=== PATIENT | male | born 1990 | race Caucasian/White ===

== ENCOUNTER 2016-03-31 17:13 | Observation (INO) | payer MEDICARE, OTHER ==
--- NOTE | 2016-03-31 19:05 | PDOC ---
History of Present Illness - General History Source: Patient Exam Limitations: No Limitations <Cristobal Pearson - Last Filed: 03/31/16 20:39> - General History Source: Patient, Family (Grandmother ), Old Records Exam Limitations: No Limitations - History of Present Illness Initial Comments: 03/31/16 19:12 The patient is a 26 year old male, with a significant past medical history of ADHD, who presents to the emergency department sent by Dr. Kim for evaluation and likely admission to rule out Guillain-Miranda syndrome. The patient reports bilateral lower extremity weakness/numbness/tingling over the past 2 days. The patient reports that his symptoms started in his right leg first, then progressed to his left. The patient saw Dr. Kim in office today who sent the patient to the ED for evaluation and admission. The patient additionally reports one questionable bloody stool yesterday but is refusing to have a rectal exam done in the ED. The patient denies fever, chills, headache or dizziness. The patient denies nausea, vomiting, diarrhea or any recent illnesses. The patient denies any trauma. The patient denies any sick contacts or recent travel. 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 The patients grandmother is at the bedside. Allergies: None reported. Past Surgical History: None reported. Social History: Former smoker. Reports social alcohol consumption. Reports marijuana use. <Sapna Monae - Last Filed: 03/31/16 21:00> - General Chief Complaint: Weakness Stated Complaint: PCP SENT/WEAKNESS Time Seen by Provider: 03/31/16 17:18 Past History - Past Medical History Other medical history: DENIES. - Psycho/Social/Smoking Cessation Hx Suicidal Ideation: No Smoking History: Former smoker Have you smoked in the past 12 months: No Number of Cigarettes Smoked Daily: 6 Information on smoking cessation initiated: No 'Breaking Loose' booklet given: 01/08/16 Hx Alcohol Use: Yes (SOCIAL) Drug/Substance Use Hx: No Substance Use Type: Marijuana <Cristobal Pearson - Last Filed: 03/31/16 20:39> <Sapna Monae - Last Filed: 03/31/16 21:00> - Past Medical History Allergies/Adverse Reactions: Allergies Allergy/AdvReac Type Severity Reaction Status Date / Time No Known Allergies Allergy Verified 03/31/16 17:19 Home Medications: Ambulatory Orders NK [No Known Home Medication] 03/31/16 Review of Systems - Review of Systems Able to Perform ROS?: Yes Comments:: 03/31/16 19:13 GENERAL/CONSTITUTIONAL: No fever or chills. No weakness. HEAD, EYES, EARS, NOSE AND THROAT: No change in vision. No ear pain or discharge. No sore throat. CARDIOVASCULAR: No chest pain or shortness of breath. RESPIRATORY: No cough, wheezing, or hemoptysis. GASTROINTESTINAL: No nausea, vomiting, diarrhea or constipation. GENITOURINARY: No dysuria, frequency, or change in urination. MUSCULOSKELETAL: No joint swelling or pain. No neck or back pain. SKIN: No rash. NEUROLOGIC: +Bilateral lower extremity weakness/numbness/tingling. No headache, vertigo, loss of consciousness. ENDOCRINE: No increased thirst. No abnormal weight change. HEMATOLOGIC/LYMPHATIC: No anemia, easy bleeding, or history of blood clots. ALLERGIC/IMMUNOLOGIC: No hives or skin allergy. <Sapna Monae - Last Filed: 03/31/16 21:00> *Physical Exam - Vital Signs Last Vital Signs Temp Pulse Resp BP Pulse Ox 98.5 F 84 19 128/71 98 03/31/16 17:19 03/31/16 17:19 03/31/16 17:19 03/31/16 17:19 03/31/16 17:19 <Cristobal Pearson - Last Filed: 03/31/16 20:39> - Vital Signs Last Vital Signs Temp Pulse Resp BP Pulse Ox 98.5 F 84 19 128/71 98 03/31/16 17:19 03/31/16 17:19 03/31/16 17:19 03/31/16 17:19 03/31/16 17:19 - Physical Exam Comments: 03/31/16 20:59 GENERAL: Awake, alert, and fully oriented, in no acute distress. HEAD: No signs of trauma. EYES: PERRLA, EOMI, sclera anicteric, conjunctiva clear. ENT: Auricles normal inspection, hearing grossly normal, nares patent, oropharynx clear without exudates. Moist mucosa. NECK: Normal ROM, supple, no lymphadenopathy, JVD, or masses. LUNGS: Breath sounds equal, clear to auscultation bilaterally. No wheezes, and no crackles. HEART: Regular rate and rhythm, normal S1 and S2, no murmurs, rubs or gallops. ABDOMEN: Soft, nontender, normoactive bowel sounds. No guarding, no rebound. No masses. EXTREMITIES: Normal range of motion, no edema. No clubbing or cyanosis. No cords , erythema, or tenderness. NEUROLOGICAL: Cranial nerves II through XII intact. 2/5 strength, plantar flexion. 0/5 strength, dorsiflexion. 4+ extension of the left knee, 4+ extension of the right knee. 3/5 strength, knee flexion bilaterally. Reflexes are 1+ of both knees. 5+ hip flexion and extension. Normal speech, gait is deferred. SKIN: Warm, dry, normal turgor, no rashes or lesions noted. <Sapna Monae - Last Filed: 03/31/16 21:00> Heart Score/ECG Review #1 ECG reviewed & interpreted by me at: 19:45 03/31/16 20:08 NSR 63, QTC 431 msec, normal axis, normal intervals, J point elevation in precordial leads, TWI V2, RSR' V2 <Crisotbal Pearson - Last Filed: 03/31/16 20:39> ED Treatment Course - LABORATORY CBC & Chemistry Diagram: 03/31/16 18:58 03/31/16 18:58 <Cristobal eParson - Last Filed: 03/31/16 20:39> - LABORATORY CBC & Chemistry Diagram: 03/31/16 18:58 03/31/16 18:58 <Sapna Monae - Last Filed: 03/31/16 21:00> Medical Decision Making - Medical Decision Making 03/31/16 19:01 A portion of this note was documented by scribe services under my direction. I have reviewed the details of the note, within reason, and agree with the documentation with the following case summary and management plan written by me. Patient treated in the ED. Nursing notes are reviewed and incorporated into the medical decision-making. Vital signs reviewed. Peripheral IV access obtained by the nurse, laboratory studies are drawn and sent, reviewed and interpreted by myself. Vital Signs Temp Pulse Resp BP Pulse Ox 98.5 F 84 19 128/71 98 03/31/16 17:19 03/31/16 17:19 03/31/16 17:19 03/31/16 17:19 03/31/16 17:19 26-year-old male with ADHD presents from neurologist office Dr. Kim for rule out Guillain-Miranda syndrome. 2 days ago, patient noted some tingling and numbness and weakness in his right lower extremity that progressed to his left lower extremity. Denies any urinary or bowel incontinence. Did have 1 questionable bloody's stool moving yesterday but denies fevers, chills, nausea, vomiting, diarrhea. Denies sick contacts or recent travels. He is now having difficulty walking. Patient had visited neurologist office Dr. Kim who sent the patient to the ED for Guillain-Miranda syndrome rule out. Patient refuses rectal exam at this time. We had agreed that the next patient has a bowel movement, we'll send for stool occult and for culture ie campylobacter. We'll touch base with patient's neurologist. We'll admit the patient to the hospital for further evaluation. Within the differential is multiple sclerosis. Will include MRI Brain and Neck. 03/31/16 20:[address] Lira. She accepts the patient to med/surg observation. Case discussed in detail with admitting physician including history, physical exam and ancillary studies. Admitting physician has assumed care for the patient, will follow all pending diagnostics and will complete the evaluation and treatment. <Cristobal Pearson - Last Filed: 03/31/16 20:39> - Medical Decision Making 03/31/16 19:[address] Kim at 18:55. Referred to answering service, awaiting callback. Dr. Canas returned call at 19:08. Case discussed. <Sapna Monae - Last Filed: 03/31/16 21:00> *DC/Admit/Observation/Transfer - Discharge Dispostion Admit: Yes <Cristobal Pearson - Last Filed: 03/31/16 20:39> - Attestations Scribe Attestion: 03/31/16 19:05 Documentation prepared by Sapna Monae, acting as medical dosimetrist for Cristobal Pearson MD. <Sapna Monae - Last Filed: 03/31/16 21:00> Diagnosis at time of Disposition: Weakness
[2016-03-31 19:15] LABS: BASOPHIL 0.4 % (0-2.0); EOSINOPHIL 0.2 % (0-4.5); MCH 26.7 pg (25.7-33.7); MCHC 33.1 g/dl (32.0-35.9); MEAN CELL VOLUME 80.6 fl (80-96); MEAN PLT VOLUME 8.2 fl (7.5-11.1); NEUTROPHILS 62.8 % (42.8-82.8); PLATELET COUNT 279 K/MM3 (134-434); WHITE BLOOD COUNT 9.5 K/mm3 (4.0-10.0)
[2016-03-31 19:38] LABS: ALBUMIN 4.6 g/dl (3.4-5.0); ANION GAP 9 (8-16); CALCIUM 9.3 mg/dL (8.5-10.1); CO2 26 mmol/L (21-32); CREATININE 0.7 mg/dL (0.7-1.3); GLUCOSE,RANDOM 86 mg/dL (74-106); SGOT/AST 208 U/L (15-37); SGPT/ALT 40 U/L (12-78)
[2016-03-31 19:39] LABS: ALK PHOS 83 U/L (45-117); BILIRUBIN,TOTAL 0.7 mg/dL (0.2-1.0); TOT PROT 7.7 g/dl (6.4-8.2)
[2016-03-31 19:53] LABS: INR 1.05 (0.82-1.09); PROTHROMBIN TIME (PATIENT) 11.6 SEC (9.98-11.88)
[2016-03-31 19:56] LABS: ACTIVATED PTT 28.8 SECONDS (26.9-34.4)
[2016-03-31] MEDS ORDERED: KETOROLAC TROMETHAMINE 30 MG/1 ML VIAL IVPUSH ONE (21:02)
--- NOTE | 2016-03-31 21:46 | HP ---
CHIEF COMPLAINT: leg weakness PCP: none-sent by Dr. Kim-neurology HISTORY OF PRESENT ILLNESS: This is a 26 year old male with a past medical history of ADHD on no medications who presented to the ED with a 2 day history of bilateral lower extremity weakness and pain. He states that the weakness began in the right leg and then progressed to the left. He also reports numbness to both of his feet. He states that he has difficulty walking as his legs "give out" and he "loses his balance" frequently. He denies any recent illnesses, stating that he hasn't been sick in "months." He does report an episode of passing blood rectally yesterday. He states that there was no stool, only a small amount of blood, but he had a normal BM today. He denies any headache, blurry vision, difficulty swallowing, chest pain, SOB, abd pain, N/V/D. ER course was notable for: (1) ECG normal (2) labs WNL Recent Travel: pt denies PAST MEDICAL HISTORY: ADHD PAST SURGICAL HISTORY: pt denies Social History: Smoking: pt denies Alcohol: reports occasional use Drugs: Marijuana, denies any further MDMA since last visit in February Family History: mother in childbirth father alive with HLD, HTN, DM, morbid obesity, had a CVA in his late 30s grandmother with DM, HTN, HLD Allergies No Known Allergies Allergy (Verified 03/31/16 17:19) HOME MEDICATIONS: 3 Medication Instructions Recorded NK [No Known Home Medication] 03/31/16 REVIEW OF SYSTEMS CONSTITUTIONAL: Absent: fever, chills, diaphoresis, generalized weakness, malaise, loss of appetite, weight change HEENT: Absent: rhinorrhea, nasal congestion, throat pain, throat swelling, difficulty swallowing, mouth swelling, ear pain, eye pain, visual changes CARDIOVASCULAR: Absent: chest pain, syncope, palpitations, irregular heart rate, lightheadedness , peripheral edema RESPIRATORY: Absent: cough, shortness of breath, dyspnea with exertion, orthopnea, wheezing, stridor, hemoptysis GASTROINTESTINAL: Absent: abdominal pain, abdominal distension, nausea, vomiting, diarrhea, constipation, melena, hematochezia GENITOURINARY: Absent: dysuria, frequency, urgency, hesitancy, hematuria, flank pain, genital pain MUSCULOSKELETAL: Present: bilat leg pain Absent: myalgia, arthralgia, joint swelling, back pain, neck pain SKIN: Absent: rash, itching, pallor HEMATOLOGIC/IMMUNOLOGIC: Absent: easy bleeding, easy bruising, lymphadenopathy, frequent infections ENDOCRINE: Absent: unexplained weight gain, unexplained weight loss, heat intolerance, cold intolerance NEUROLOGIC: bilateral leg weakness and numbness, unsteady gait Absent: headache, dizziness, seizure, mental status changes, bladder or bowel incontinence PSYCHIATRIC: Absent: anxiety, depression, suicidal or homicidal ideation, hallucinations. PHYSICAL EXAMINATION Vital Signs - 24 hr 3 03/31/16 17:19 Temperature 98.5 F Pulse Rate 84 Respiratory 19 Rate Blood Pressure 128/71 O2 Sat by Pulse 98 Oximetry (%) GENERAL: Awake, alert, and fully oriented, in no acute distress. HEAD: Normal with no signs of trauma. EYES: Pupils equal, round and reactive to light, extraocular movements intact, sclera anicteric, conjunctiva clear. No lid lag. EARS, NOSE, THROAT: Ears normal, nares patent, oropharynx clear without exudates. Moist mucous membranes. symmetrical movement of posterior pharynx NECK: Normal range of motion, supple without lymphadenopathy, JVD, or masses. LUNGS: Breath sounds equal, clear to auscultation bilaterally. No wheezes, and no crackles. No accessory muscle use. HEART: Regular rate and rhythm, normal S1 and S2 without murmur, rub or gallop. ABDOMEN: Soft, nontender, not distended, normoactive bowel sounds, no guarding, no rebound, no masses. No hepatomegaly or splenomegaly. refused rectal exam MUSCULOSKELETAL: Normal range of motion at all joints. No bony deformities or tenderness. No CVA tenderness. UPPER EXTREMITIES: 2+ pulses, warm, well-perfused. No cyanosis. No clubbing. Cap refill <2 seconds. No peripheral edema. normal muscle strength, no drift on arm raise LOWER EXTREMITIES: 2+ pulses, warm, well-perfused. No calf tenderness. No peripheral edema. Absent sensation to monofilament test from 2/3 way up lower leg laterally and just above ankles medially including plantar surface of great toes bilaterally. normal DTRs knee and ankle bilaterally. muscle strength: dorsi and plantar flexion 1-2/5 bilaterally. knee extension and flexion 3/5, able to raise thighs off bed in sitting position 5/5 NEUROLOGICAL: Cranial nerves II-XII intact. Normal speech. PSYCHIATRIC: Cooperative. Good eye contact. Appropriate mood and affect. SKIN: Warm, dry, normal turgor, no rashes or lesions noted. Laboratory Results - last 24 hr 3 03/31/16 03/31/16 03/31/16 18:58 18:58 19:20 WBC 9.5 D RBC 5.30 Hgb 14.2 Hct 42.8 MCV 80.6 MCHC 33.1 RDW 13.0 Plt Count 279 MPV 8.2 Neutrophils % 62.8 D Lymphocytes % 24.9 D Monocytes % 11.7 H Eosinophils % 0.2 D Basophils % 0.4 INR 1.05 PTT (Actin FS) 28.8 Sodium 140 Potassium 3.6 Chloride 105 Carbon Dioxide 26 Anion Gap 9 BUN 20 H Creatinine 0.7 Creat Clearance w eGFR > 60 Random Glucose 86 Calcium 9.3 Total Bilirubin 0.7 AST 208 H ALT 40 Alkaline Phosphatase 83 Total Protein 7.7 Albumin 4.6 ECG: sinus rhythm, rate 63, QTC 431, no acute ST/T inversion ASSESSMENT/PLAN: 26yM with PMH ADHD presented to the ED with bilat lower extremity weakness, sent in by neurology to r/o Guillain-barre syndrome. He is being admitted for observation and further testing. Bilateral lower extremity weakness and numbness - neurology consult - MRI head and c spine ordered by ED, Lumbar spine added - neurology to do lumbar puncture hematochezia - stool culture (r/o C. jejuni), O&P and occult blood ordered, pt refused rectal DVT PPX - as pt not fully ambulatory, start heparin 5000u BID FEN - tolerating po - repeat labs including Mag and Phos in AM - regular diet Dispo: pt currently requires inpatient observation of his emergent condition. Visit type - Emergency Visit Emergency Visit: Yes ED Registration Date: 03/31/16 Care time: The patient presented to the Emergency Department on the above date and was hospitalized for further evaluation of their emergent condition. - New Patient This patient is new to me today: Yes Date on this admission: 03/31/16 - Critical Care Critical Care patient: No
[2016-03-31] MEDS: HEPARIN NA (PORCINE) 5,000 UNITS/ML 1ML VIAL SQ SCH (22:11)
[2016-03-31 22:41] VITALS: BMI 19.1
[2016-04-01 07:47] LABS: BASOPHIL 0.6 % (0-2.0); EOSINOPHIL 1.2 % (0-4.5); MCH 27.3 pg (25.7-33.7); MCHC 33.3 g/dl (32.0-35.9); MEAN CELL VOLUME 81.9 fl (80-96); MEAN PLT VOLUME 8.2 fl (7.5-11.1); NEUTROPHILS 36.9 % (42.8-82.8); PLATELET COUNT 225 K/MM3 (134-434); RDW 13.1 % (11.9-15.9); WHITE BLOOD COUNT 5.8 K/mm3 (4.0-10.0)
[2016-04-01 08:06] LABS: CALCIUM 8.9 mg/dL (8.5-10.1); CREATININE 0.8 mg/dL (0.7-1.3); MAGNESIUM 2.6 mg/dL (1.8-2.4); PHOSPHOROUS 4.4 mg/dL (2.5-4.9)
[2016-04-01] MEDS: morphine CARPU-JECT 2 MG/1 ML DISP.SYRIN IVPUSH PRN ×2 (08:52)
[2016-04-01] MEDS: HEPARIN NA (PORCINE) 5,000 UNITS/ML 1ML VIAL SQ SCH (09:09)
[2016-04-01] MEDS ORDERED: LORazepam 1 MG TABLET PO ONE (11:12)
[2016-04-01] MEDS ORDERED: LORAZEPAM CARPU-JECT 2 MG/ML DISP.SYRIN IVPUSH ONE ×2 (11:33→16:30)
--- NOTE | 2016-04-01 14:14 | PN ---
Physical Exam: SUBJECTIVE: Patient seen and examined at the bedside. States it is difficult to walk around the room secondary to lower extremity weakness. States the top of his feet "feel numb". OBJECTIVE: Vital Signs Period Temp Pulse Resp BP Sys/[place] Pulse Ox Last 24 Hr 97.8 F-98.6 F 48-80 16-20 99-133/53-81 100-100 GENERAL: The patient is awake, alert, and fully oriented, in no acute distress. HEAD: Normal with no signs of trauma. EYES: PERRL, extraocular movements intact, sclera anicteric, conjunctiva clear. No ptosis. ENT: Ears normal, nares patent, oropharynx clear without exudates, moist mucous membranes. NECK: Trachea midline, full range of motion, supple. LUNGS: Breath sounds equal, clear to auscultation bilaterally HEART: Regular rate and rhythm ABDOMEN: Soft, nontender, nondistended, normoactive bowel sounds EXTREMITIES: no edema on bilateral LE, NEUROLOGICAL: Normal speech, gait not observed. 2+ pulses, warm, well-perfused. No calf tenderness. No edema. Absent sensation from 2/3 way up lower leg laterally and just above ankles medially including plantar surface of great toes bilaterally. Absent sensation on bilateral upper spectrum of feet, describes as "pins and needles" SKIN: Warm, dry, normal turgor, no rashes or lesions noted Laboratory Results - last 24 hr 04/01/16 04/01/16 06:00 06:00 WBC 5.8 D RBC 5.05 Hgb 13.8 Hct 41.4 MCV 81.9 MCHC 33.3 RDW 13.1 Plt Count 225 MPV 8.2 Neutrophils % 36.9 L D Lymphocytes % 48.8 H D Monocytes % 12.5 H Eosinophils % 1.2 D Basophils % 0.6 Sodium 140 Potassium 3.6 Chloride 104 Carbon Dioxide 28 Anion Gap 8 BUN 20 H Creatinine 0.8 Random Glucose 100 Calcium 8.9 Phosphorus 4.4 Magnesium 2.6 H Active Medications Generic Name Dose Route Start Last Admin Trade Name Freq PRN Reason Stop Dose Admin Lorazepam 1 mg 04/01/16 16:30 Ativan Injection - IVPUSH 04/01/16 16:31 ONCE ONE ASSESSMENT/PLAN: The patient is a 26 year old male with a significant past medical history of ADHD and former smoker. He was sent to the ER by his neurologist, Dr. Kim for further evaluation to rule out Guillain-Miranda syndrome. The patient reports bilateral lower extremity weakness, numbness and tingling for over the past 2 days. He further states that he had similar symptoms 2 weeks ago but it resolved quickly. Patient further reports bloody stools yesterday, The patient additionally reports one questionable bloody stool yesterday but is refusing to have a rectal exam done in the ED. The patient denies fever, chills, headache or dizziness. He denies any recent illnesses or trauma. 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 He reports recreational marijuana use. Neuro: Bilateral lower extremity progressive weakness/numbness Assessment/Plan: Sent in by his neurologist for further workup and to r/o guillain-barre syndrome Pending MRI of brain, cervical and lumbar spine today Potential LP by neuro Will need PT eval GI: Hematochezia - acute Assessment/Plan: pt reports passage of fresh blood through the anus, usually in or without stools Ova and Parasites blood ordered Hmg/hct stable Refused rectal exam in ED CBC in a.m. F.E.N. Fluids: tolerating PO Electrolytes: hypermag levels, monitor Nutrition: regular diet Prophylaxis: GI: none needed at this time DVT: SCDs when in bed, no AC secondary to hematochezia Disposition: Pt currently requires inpatient observation of his emergent condition. Full Code Visit type - Emergency Visit Emergency Visit: Yes ED Registration Date: 03/31/16 Care time: The patient presented to the Emergency Department on the above date and was hospitalized for further evaluation of their emergent condition. - New Patient This patient is new to me today: Yes Date on this admission: 04/01/16 - Critical Care Critical Care patient: No - Discharge Referral Referred to [facility] Med P.C.: No
[2016-04-01] MEDS ORDERED: morphine CARPU-JECT 2 MG/1 ML DISP.SYRIN IVPUSH PRN (14:17)
--- NOTE | 2016-04-01 16:19 | CONSULT ---
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 Seen in my office yesterday after 2 days of weakness and numbness in both legs with decreased balance and falls. He was in his [employer] Sunday and worked 2 jobs. That night he got high and fell asleep in be with legs crossed, style. He awoke AM with numbness and weakness is BOTH legs and claimed numbness was spreading up to his calves. + FH of MS in 2 relatives. Admitted through the ER for MRI scans, lumbar puncture and close observation to R/O Guillaine-Maskell Syndrome and Transverse Myelitis (demyelinating disease). Today, patient denies progression of symptoms overnight. No arm complaints. No dysphagia, dysarthria or bowel or bladder changes. EXAM: - Lhermittes. - SLR. No spinal palp tenderness. NEURO: MS, Speech, CN's II-XII: Normal MOTOR: Isolated weakness of B/L ankle dorsiflexion, toe extension and eversion (all 1/5) with complete preservation of ankle plantarflexon and inversion (5/5) with normal reflexes including AJ's. Toes downgoing. Coord: Normal Sensory: Decreased sharp in the dorsal webspace between I and II. Gait: Bilateral footdrop with steppage. IMP: Bilateral Peroneal Mononeuropathies, probably on a compressive basis. Plan: LP to R/O AIDP (Guillaine-Maskell syndrome). MRI of brain and C spine to r/o MS Physiatry consultation (can be done as out patient). Neuro f/u and EMG/NCS Thank you very much, Mack Kim MD
--- NOTE | 2016-04-01 16:22 | PROC ---
Lumbar Puncture Risks and Benefits Explained: Yes Consent on Chart: Yes Sterile Technique: Yes Skin prep: Betadine Position: Left lateral decubitus Site: L3-L4 Local Anesthesia: 1% Lidocaine with epi Opening Pressure(mmHg): 170 mm CSF CSF Color, Appearance: Clear (The procedure was well-tolerated by the patient.)
[2016-04-01 17:03] LABS: CSF APPEARANCE CLEAR; CSF COLOR COLORLESS; CSF RBC 0 /mm3
[2016-04-01 17:04] LABS: CSF APPEARANCE CLEAR; CSF COLOR COLORLESS; CSF RBC 0 /mm3
[2016-04-01 17:43] LABS: GLUCOSE,CSF 68 mg/dL (50-80)
--- NOTE | 2016-04-01 20:34 | PN ---
Progress Note (short form) - Note Progress Note: NEUROLOGY F/U: CSF protein = 27 mg% CSF Glusose= 68 mg% CSF WBC=0 MRI of Brain (reviewed): Normal MRI of Cervical spine (reviewed): Normal MRI of LS spine (reviewed): Normal IMP: No evidence for Guillaine-[place] Syndrome or Demyelinating disease (MS). Bilateral, compressive, Peroneal Palsies. SUGGEST: OK to D/C in AM NEURO F/U and EMG/NCS next week. Thank you very much, Mack Kim MD
--- NOTE | 2016-04-01 21:05 | EKG ---
Test Reason : Blood Pressure : / mmHG Vent. Rate : 063 BPM Atrial Rate : 063 BPM P-R Int : 106 ms QRS Dur : 090 ms QT Int : 422 ms P-R-T Axes : 038 084 070 degrees QTc Int : 431 ms SINUS RHYTHM WITH SHORT NV EARLY REPOLARIZATION OTHERWISE NORMAL ECG NO PREVIOUS ECGS AVAILABLE Confirmed by CAMILA CRUZ MD ([id number]) on 04/01/2016 9:05:20 PM Referred By: Confirmed By:CAMILA CRUZ MD
[2016-04-02 07:59] LABS: BASOPHIL 0.7 % (0-2.0); EOSINOPHIL 1.5 % (0-4.5); MCH 27.4 pg (25.7-33.7); MCHC 33.4 g/dl (32.0-35.9); MEAN PLT VOLUME 8.4 fl (7.5-11.1); NEUTROPHILS 39.5 % (42.8-82.8); PLATELET COUNT 216 K/MM3 (134-434); RDW 13.2 % (11.9-15.9); WHITE BLOOD COUNT 4.9 K/mm3 (4.0-10.0)
[2016-04-02 08:18] LABS: ALBUMIN 3.7 g/dl (3.4-5.0); ALK PHOS 70 U/L (45-117); ANION GAP 8 (8-16); BILIRUBIN,TOTAL 0.5 mg/dL (0.2-1.0); CALCIUM 8.4 mg/dL (8.5-10.1); CO2 28 mmol/L (21-32); CREATININE 0.7 mg/dL (0.7-1.3); GLUCOSE,RANDOM 93 mg/dL (74-106); SGOT/AST 136 U/L (15-37); SGPT/ALT 35 U/L (12-78); TOT PROT 6.5 g/dl (6.4-8.2)
[2016-04-02] MEDS ORDERED: ACETAMINOPHEN 325 MG TABLET (FP) PO PRN (11:08)
[2016-04-02 14:14] VITALS: BP 136/68; PULSE 60; TEMP 99.1
--- NOTE | 2016-04-02 22:13 | DS ---
Physical Exam: SUBJECTIVE: Patient seen and examined. OBJECTIVE: Vital Signs Period Temp Pulse Resp BP Sys/[place] Pulse Ox Last 24 Hr 97.5 F-99.1 F 51-65 16-18 101-136/56-81 100 PHYSICAL EXAM GENERAL: The patient is awake, alert, and fully oriented, in no acute distress. HEAD: Normal with no signs of trauma. EYES: PERRL, extraocular movements intact, sclera anicteric, conjunctiva clear. ENT: Ears normal, nares patent, oropharynx clear without exudates, moist mucous membranes. NECK: Trachea midline, full range of motion, supple. LUNGS: Breath sounds equal, clear to auscultation bilaterally, no wheezes, no crackles, no accessory muscle use. HEART: Regular rate and rhythm, S1, S2 without murmur, rub or gallop. ABDOMEN: Soft, nontender, nondistended, normoactive bowel sounds, no guarding, no rebound, no hepatosplenomegaly, no masses. EXTREMITIES: 2+ pulses, warm, well-perfused, no edema. NEUROLOGICAL: Cranial nerves II through XII grossly intact. Normal speech, normal gait. PSYCH: Normal mood, normal affect. SKIN: Warm, dry, normal turgor, no rashes or lesions noted. Laboratory Results - last 24 hr 04/02/16 04/02/16 07:00 07:00 WBC 4.9 RBC 4.84 Hgb 13.3 Hct 39.7 MCV 82.0 MCHC 33.4 RDW 13.2 Plt Count 216 MPV 8.4 Neutrophils % 39.5 L Lymphocytes % 46.3 H Monocytes % 12.0 H Eosinophils % 1.5 Basophils % 0.7 Sodium 143 Potassium 3.9 Chloride 107 Carbon Dioxide 28 Anion Gap 8 BUN 20 H Creatinine 0.7 Creat Clearance w eGFR > 60 Random Glucose 93 Calcium 8.4 L Total Bilirubin 0.5 D AST 136 H D ALT 35 Alkaline Phosphatase 70 Total Protein 6.5 Albumin 3.7 HOSPITAL COURSE: Date of Admission:03/31/16 Date of Discharge: 04/02/16 This is a 26 year old male with a past medical history of ADHD on no medications who presented to the ED with a 2 day history of bilateral lower extremity weakness and pain. Dr. 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 Seen in my office yesterday [03/31/16] after 2 days of weakness and numbness in both legs with decreased balance and falls. He was in his [employer] Sunday and worked 2 jobs. That night he got high and fell asleep in be with legs crossed, style. He awoke AM with numbness and weakness is BOTH legs and claimed numbness was spreading up to his calves. + FH of MS in 2 relatives. Admitted through the ER for MRI scans, lumbar puncture and close observation to R/O Guillaine-[place] Syndrome and Transverse Myelitis (demyelinating disease). On neuro exam, Dr. Kim observed: MOTOR: Isolated weakness of B/L ankle dorsiflexion, toe extension and eversion ( all 1/5) with complete preservation of ankle plantarflexon and inversion (5/5) with normal reflexes including AJ's. Toes downgoing. Coord: Normal Sensory: Decreased sharp in the dorsal webspace between I and II. Gait: Bilateral footdrop with steppage. Lumbar puncture revealed: CSF protein = 27 mg% CSF Glusose= 68 mg% CSF WBC=0 Imaging: MRI of Brain (reviewed): Normal MRI of Cervical spine (reviewed): Normal MRI of LS spine (reviewed): Normal IMP: No evidence for Guillaine-[place] Syndrome or Demyelinating disease (MS). Bilateral, compressive, Peroneal Palsies. Neuro followup. EMG/NCS next week. Minutes to complete discharge: 35 Discharge Summary Reason For Visit: WEAKNESS Current Active Problems Weakness (Acute) Condition: Improved - Instructions Diet, Activity, Other Instructions: You should call Dr. Kim's office tomorrow morning to make an appointment. Return to the emergency department for any new or worsening symptoms. Referrals: Mack Kim MD [Staff Physician] - 1 Week Disposition: HOME - Home Medications Comprehensive Discharge Medication List: Ambulatory Orders NK [No Known Home Medication] 03/31/16 This patient is new to me today: Yes Date on this admission: 04/05/16 Emergency Visit: Yes ED Registration Date: 03/31/16 Care time: The patient presented to the Emergency Department on the above date and was hospitalized for further evaluation of their emergent condition. Critical Care patient: No - Discharge Referral Referred to [facility] No
[2016-04-05 00:06] LABS: LYME IGG WB INTERP. Negative (.); LYME IGM WB. INTERP Negative (.); P18 AB Absent (.); P23 AB Absent (.); P28 AB Absent (.); P30 AB Absent (.); P39 AB Absent (.); P41 AB Absent (.); P41 AB Present (.); P45 AB Absent (.); P58 AB Present (.); P66 AB Absent (.); P93 AB Absent (.)
== END 2016-04-02 15:44 | disposition home or self-care (01) ==
LOC: JER 17:13 → JERBED 20:39 → J8W 22:05
PROVIDERS: ADMIT Internal Medicine; ATTEND Nurse Practitioner Acute Care
PROC: 009U3ZX Drainage of Spinal Canal, Percutaneous Approach, Diagnostic (ICD-10-PCS; principal; 2016-04-01)
DX: G57.33 Lesion of lateral popliteal nerve, bilateral lower limbs (principal); R20.0 Anesthesia of skin; R53.1 Weakness; F90.9 Attention-deficit hyperactivity disorder, unspecified type; M21.372 Foot drop, left foot; M21.371 Foot drop, right foot; K92.1 Melena
CPT/HCPCS: 36415; 70553-TC; 72148-TC; 72156-TC; 80048; 80053; 82784; 82945; 83735; 83873; 84100; 84157; 85025; 85610; 85730; 86592; 86617; 87070; 87205; 89050; 93005; 93010; 99285-25; A9576; G0378; J1644